=== PATIENT | female | born 1965 | race Caucasian/White ===

== ENCOUNTER 2024-09-19 14:35 | Emergency (ER) | payer MEDICARE, MEDICAID, SELFPAY ==
[2024-09-19 14:36] VITALS: BP 153/93; PULSE 90; RESP 16; TEMP 36.8; O2SAT 99; BMI 35.1
--- NOTE | 2024-09-19 15:40 | RAD_ITS ---
PROCEDURE: LUMBAR SPINE 2 OR 3 VIEWS 09/19/2024 REASON FOR EXAM: PAIN TECHNIQUE: 2 view(s) of the lumbar spine COMPARISON: None FINDINGS: Ve lumbar lordosis is maintained. Grade 1 anterolisthesis L4 on L5. Minimal scoliosis. Vertebral body heights are maintained. Disc spaces are within normal limits. No acute fracture or traumatic malalignment. Pedicles are intact. Osseous architecture is maintained. Mild-moderate multilevel degenerative changes, most prominent of the lower lumbar spine. RAD/Lumbar Spine 2 or 3 Views IMPRESSION: No acute fracture or traumatic malalignment. Mild-moderate multilevel degenerative changes, most prominent in the lower lumb ar spine. Reading Location: [facility]
[2024-09-19] MEDS: Ketorolac 60 MG/2 ML Vial IM (15:53)
--- NOTE | 2024-09-19 16:24 | EDS_ITS ---
HPI History of Present Illness Chief Complaint: Back Informant: patient and family Narrative Narrative: 59-year-old female presenting to the emergency room with right buttock thigh pain. Patient states that since June she has had pain which she believes to but sciatica. She states she has not seen anybody for this. She has an appointment on with her primary care doctor. She states that she cannot take the pain. She denies any bowel or bladder dysfunction. No fever no rashes. She denies any neurologic deficits. Patient's primary care doctor who is in [place] she lives in [place] and does not wish to go to [facility] because family works at the nursing home and prefers to keep the nursing home/work life separate. She has never been to this hospital before. Patient informed nursing that she does not want any muscle relaxants or steroids. She reports that she has had MRIs in the past. She states that she was told she had bulging disc. States in 2023 she went to have a lumbar surgery and believe that the disc had relocated and that they removed degenerative arthritic bone. [facility] Medical History (Updated 09/19/24 @ 16:[address] Gilbert Bernal DO) HTN (hypertension) Back pain Allergy/AdvReac Type Severity Reaction Status Date / Time No Known Allergies Allergy Verified 09/19/24 14:38 Social History Smoking Status: Unknown if ever smoked ROS ROS ED Constitutional Constitutional ED: Denies chills or weight loss Eyes Eyes: Denies change in vision or diplopia ENT ENT ED: Denies ear pain, rhinorrhea or sore throat Cardiovascular Cardiovascular: Denies chest pain, orthopnea, palpitations or racing heartbeat Respiratory/Chest Respiratory/Chest: Denies cough, dyspnea or orthopnea Gastrointestinal Gastrointestinal: Denies abdominal pain, diarrhea, nausea or vomiting Genitourinary Genitourinary ED: Denies dysuria, hematuria or urinary frequency Musculoskeletal Musculoskeletal: Reports back pain and other Details: Right leg pain ; Denies arthralgias or myalgias Integumentary Denies abscess or rash Neurologic Neurologic: Denies headache(s) or weakness Psychiatric Psychiatric: Denies anxiety, depression, suicidal ideation or suicidal thoughts Endocrine Endocrinology: Denies polydipsia, polyphagia or polyuria Allergic/Immunologic Allergic/Immunologic ED: Denies mouth swelling, tongue swelling or urticaria EXAM Physical Exam Const Vital Signs: 09/19/24 14:36 Temperature 98.2 F Temperature Source Oral Pulse Rate 90 Respiratory Rate 16 Blood Pressure 153/93 H Blood Pressure Mean 113 Pulse Ox 99 Oxygen Delivery Method Room Air Positive well nourished and well developed General Appearance ED: well developed and NAD HEENT Reports normocephalic, head/scalp atraumatic and moist mucous membranes Eyes PERRL and EOMs intact bilaterally Neck no lymphadenopathy, supple and no JVD Resp normal respiratory effort and clear to auscultation bilaterally Cardio regular rate, regular rhythm and no murmurs GI normal to inspection, nondistended, normoactive bowel sounds and non-tender Palpation: soft Back/Spine no CVA tenderness Back/Spine Narrative: Painful ROM. There is no rash. Tender to palpation right lower lumbar and buttock region. No neurologic deficits. +2 patellar tendon and Achilles bilateral Extremity normal to inspection General Extremety ED: Negative for edema General Extremity: Negative for edema Neuro oriented x3 and CN's II-XII intact bilaterally Sensorium / Orientation: alert Motor Exam: strength 5/5 throughout Psych mental status grossly normal Mood & Affect: Negative for depressed or tearful Skin no rashes or lesions noted and no wounds MDM MDM MDM Narrative Medical decision making narrative: Differential diagnosis includes but not limited to disc herniation spinal stenosis degenerative arthrosis piriformis dysfunction shingles Lumbar x-rays show degenerative changes particularly L5-S1. I logged into [employer] and see that the patient was seen 7 August at [facility] by Dr. Burch and given muscle relaxants and steroids (patient had stated she had not seen anybody for her back pain since it began in June). I see that she has been participating in physical therapy for her left knee replacement. [facility] report shows that she has not filled narcotics in the past couple months. History & Record Review Discussion w/independent historian: Patient Radiography Diagnostic Testing: Clinical Impression(s) from Imaging Studies Lumbar Spine X-Ray 09/19/24 15:40 IMPRESSION: No acute fracture or traumatic malalignment. Mild-moderate multilevel degenerative changes, most prominent in the lower lum bar spine. Reading Location: [facility] Discharge Plan Triage Chief Complaint: Back ED Provider: Gilbert Bernal Dx/Rx/DC Orders Primary Care Provider: Erasmo Stockton Referrals: Erasmo Stockton MD [Primary Care Provider] - Print Language: Albanian
[2024-09-19 16:36] VITALS: BP 142/58; PULSE 88; RESP 14; TEMP 36.9; O2SAT 96
== END 2024-09-19 16:51 | disposition home or self-care (01) ==
PROVIDERS: Emergency Provider Emergency Medicine; PCP Internal Medicine; Visit Provider Emergency Medicine
DX: M79.651 Pain in right thigh (principal); I10 Essential (primary) hypertension; M54.9 Dorsalgia, unspecified
CPT/HCPCS: 72100; 96372; 99283